=== PATIENT | male | born 1985 | race Caucasian/White ===

== ENCOUNTER 2017-07-10 10:28 | Emergency (ER) | payer SELFPAY ==
[2017-07-10 11:22] VITALS: BP 138/89
--- NOTE | 2017-07-10 12:34 | UC ---
Ear Complaint HPI - HPI Summary HPI Summary: Patient has had 10 days of cold symptoms, c/o of fever, although he never took his temp, body aches and sore throat that clears after waking up. - History of Current Complaint Chief Complaint: UCRespiratory Stated Complaint: THROAT,CONGESTION Time Seen by Provider: 07/10/17 12:17 Hx Obtained From: Patient Onset/Duration: Sudden Onset, Lasting Days Severity Initially: Moderate Severity Currently: Moderate - Allergies/Home Medications Allergies/Adverse Reactions: Allergies Allergy/AdvReac Type Severity Reaction Status Date / Time No Known Allergies Allergy Verified 07/10/17 11:16 Home Medications: Home Medications [id number] [Nyquil Severe Cold/Flu 5-6.25-10-325 mg/15Ml] 1 liq PO ONCE PRN 07/10/17 [History Confirmed 07/10/17] PMH/Surg Hx/FS Hx/Imm Hx Previously Healthy: Yes - Surgical History Surgical History: Yes Surgery Procedure, Year, and Place: right eye sx as a kid - Family History Known Family History: Negative: Hypertension, Diabetes, Respiratory Disease - Social History Alcohol Use: Rare Substance Use Type: None Smoking Status (MU): Current Some Day Smoker Type: Smokeless Tobacco Amount Used/How Often: daily - Immunization History Most Recent Influenza Vaccination: not this season Review of Systems Constitutional: Negative Skin: Negative Eyes: Negative ENT: Sore Throat, Ear Ache Respiratory: Cough Cardiovascular: Negative Gastrointestinal: Negative Genitourinary: Negative Motor: Negative Neurovascular: Negative Musculoskeletal: Myalgia Neurological: Headache Psychological: Negative Is Patient Immunocompromised?: No All Other Systems Reviewed And Are Negative: Yes Physical Exam Triage Information Reviewed: Yes Appearance: Well-Nourished, Ill-Appearing, Pain Distress Vital Signs: Initial Vital Signs Temp 98.6 F 07/10/17 11:17 Pulse 81 07/10/17 11:17 Resp 18 07/10/17 11:17 BP 138/89 07/10/17 11:17 Pulse Ox 100 07/10/17 11:17 Vital Signs Reviewed: Yes Eye Exam: Normal ENT: Positive: Pharynx normal, Other - bilateral cerumen impaction Dental Exam: Normal Neck exam: Normal Respiratory Exam: Normal Respiratory: Positive: Chest non-tender, Lungs clear, Normal breath sounds Cardiovascular Exam: Normal Cardiovascular: Positive: RRR, No Murmur, Pulses Normal Abdominal Exam: Normal Abdomen Description: Positive: Nontender, No Organomegaly, Soft Bowel Sounds: Positive: Present Musculoskeletal Exam: Normal Musculoskeletal: Positive: Strength Intact, ROM Intact, No Edema Neurological Exam: Normal Neurological: Positive: Alert, Muscle Tone Normal Psychological Exam: Normal Skin Exam: Normal Ear Complaint Course/Dx - Course Course Of Treatment: hx obtained, exam performed ,meds reviewed, treated for cough and infalmmation of ears - Differential Dx/Diagnosis Differential Diagnosis/HQI/PQRI: Otitis Externa, Otitis Media, Pharyngitis, URI Provider Diagnoses: URI. cough. bilateral cerumen impaction Discharge - Discharge Plan Condition: Stable Disposition: HOME Prescriptions: predniSONE TAB* [Deltasone TAB*] 40 mg PO DAILY #14 tab Patient Education Materials: Upper Respiratory Infection (ED) Referrals: No Primary Care Phys,NOPCP [Primary Care Provider] - Additional Instructions: 1. take the prednisone as prescribed. 2. Increase fluid intake and get plenty of rest. 3. Follow up with any increase in symptoms.
== END 2017-07-10 13:35 | disposition home or self-care (01) ==
LOC: UCCORT 10:28
DX: J06.9 Acute upper respiratory infection, unspecified (principal); R05 Cough; H61.23 Impacted cerumen, bilateral; Z72.0 Tobacco use
CPT/HCPCS: 99213; G0463

== ENCOUNTER 2017-07-19 11:02 | Emergency (ER) | payer SELFPAY ==
[2017-07-19 11:53] VITALS: BP 124/82
--- NOTE | 2017-07-19 12:23 | RAD ---
HISTORY: Right knee pain COMPARISONS: None VIEWS: 4, Frontal, lateral, axial, and oblique views right knee FINDINGS: BONE DENSITY: Normal. BONES: There is no displaced fracture. JOINTS: There is no arthropathy. There is no suprapatellar joint effusion or lipohemarthrosis. ALIGNMENT: There is no dislocation. SOFT TISSUES: Unremarkable. OTHER FINDINGS: None. IMPRESSION: NO ACUTE OSSEOUS INJURY. IF SYMPTOMS PERSIST, RECOMMEND REPEAT IMAGING.
--- NOTE | 2017-07-19 12:27 | UC ---
Knee Pain HPI - HPI Summary HPI Summary: right knee pain x 1 day has been having right knee discomfort for about 8 months, no known injury , feels the knee comes out of joint and then goes back in - History of Current Complaint Chief Complaint: UCLowerExtremity Stated Complaint: RT KNEE INJURY Time Seen by Provider: 07/19/17 11:54 Hx Obtained From: Patient Onset/Duration: Gradual Onset, Lasting Days - 1, Still Present Severity Initially: Moderate Severity Currently: Moderate Aggravating Factor(s): Movement, Weight Bearing, Prolonged Standing, Stairs Alleviating Factor(s): Rest Associated Signs And Symptoms: Positive: Swelling. Negative: Redness, Bruising , Fever, Weakness, Numbness, Tingling - Allergies/Home Medications Allergies/Adverse Reactions: Allergies Allergy/AdvReac Type Severity Reaction Status Date / Time No Known Allergies Allergy Verified 07/19/17 11:46 PMH/Surg Hx/FS Hx/Imm Hx Previously Healthy: Yes - Surgical History Surgical History: Yes Surgery Procedure, Year, and Place: right eye sx as a kid - Family History Known Family History: Negative: Hypertension, Diabetes, Respiratory Disease - Social History Alcohol Use: Rare Substance Use Type: None Smoking Status (MU): Current Some Day Smoker Type: Smokeless Tobacco Amount Used/How Often: daily - Immunization History Most Recent Influenza Vaccination: not this season Review of Systems Constitutional: Negative Skin: Negative Eyes: Negative ENT: Negative Respiratory: Negative Cardiovascular: Negative Is Patient Immunocompromised?: No All Other Systems Reviewed And Are Negative: Yes Physical Exam Triage Information Reviewed: Yes Appearance: Well-Appearing, No Pain Distress, Well-Nourished Vital Signs: Initial Vital Signs Temp 99.5 F 07/19/17 11:47 Pulse 100 07/19/17 11:47 Resp 18 07/19/17 11:47 BP 124/82 07/19/17 11:47 Vital Signs Reviewed: Yes Eyes: Positive: Conjunctiva Clear ENT: Positive: Normal ENT inspection, Hearing grossly normal, Pharynx normal Neck exam: Normal Neck: Positive: Supple, Nontender, No Lymphadenopathy Respiratory: Positive: Chest non-tender, Lungs clear, Normal breath sounds, No respiratory distress Musculoskeletal: Positive: Other: - right knee: no swelling, no effusion , no erythema, good ROM on flexion and extension stable ligaments Diagnostics - Laboratory Diagnostic Studies Completed/Ordered: right knee: normal knee xray , no fracture , no dyslocation Knee Pain Course/Dx - Differential Dx/Diagnosis Provider Diagnoses: right knee pain Discharge - Discharge Plan Condition: Stable Disposition: HOME Patient Education Materials: Knee Pain (ED) Referrals: No Primary Care Phys,NOPCP [Primary Care Provider] - 2 Weeks
== END 2017-07-19 12:42 | disposition home or self-care (01) ==
LOC: UCCORT 11:02
DX: M25.561 Pain in right knee (principal); Z72.0 Tobacco use
CPT/HCPCS: 99211; G0463

== ENCOUNTER 2017-09-24 18:29 | Emergency (ER) | payer BC ==
[2017-09-24 19:31] VITALS: BP 142/89
--- NOTE | 2017-09-24 19:55 | UC ---
Throat Pain/Nasal Simón HPI - HPI Summary HPI Summary: C/O sore throat, chest is heavy but not SOB. Body aches but no headache, congestion or cough. C/O spots on the left shoulder over the last 3 days. Mild itching. - History of Current Complaint Chief Complaint: UCGeneralIllness Stated Complaint: SORE THROAT/ACHY/SPOTS ON SHLD Time Seen by Provider: 09/24/17 19:48 Onset/Duration: Sudden Onset, Lasting Days - 1, Still Present Severity: Moderate Pain Intensity: 6 Cough: None Associated Signs & Symptoms: Positive: Dysphagia. Negative: Wheezing, Hoarseness, Sinus Discomfort, Nasal Discharge - Allergies/Home Medications Allergies/Adverse Reactions: Allergies Allergy/AdvReac Type Severity Reaction Status Date / Time No Known Allergies Allergy Verified 09/24/17 19:29 Home Medications: Home Medications NK [No Home Medications Reported] 09/24/17 [History Confirmed 09/24/17] PMH/Surg Hx/FS Hx/Imm Hx Previously Healthy: Yes - Surgical History Surgical History: Yes Surgery Procedure, Year, and Place: right eye sx as a kid - Family History Known Family History: Negative: Cardiac Disease, Hypertension, Diabetes, Respiratory Disease - Social History Occupation: Employed Full-time Lives: Alone Alcohol Use: Rare Substance Use Type: None Smoking Status (MU): Current Some Day Smoker Type: Smokeless Tobacco Amount Used/How Often: daily - Immunization History Most Recent Influenza Vaccination: not this season Review of Systems ENT: Sore Throat Musculoskeletal: Myalgia Is Patient Immunocompromised?: No All Other Systems Reviewed And Are Negative: Yes Physical Exam Triage Information Reviewed: Yes Appearance: Well-Appearing, No Pain Distress, Well-Nourished Vital Signs: Initial Vital Signs Temp 99.7 F 09/24/17 19:25 Pulse 99 09/24/17 19:25 Resp 14 09/24/17 19:25 BP 142/89 09/24/17 19:25 Pulse Ox 99 09/24/17 19:25 Vital Signs Reviewed: Yes Eyes: Positive: Conjunctiva Clear ENT: Positive: Pharynx normal, TMs normal Neck exam: Normal Respiratory: Positive: Lungs clear Cardiovascular Exam: Normal Musculoskeletal Exam: Normal Neurological Exam: Normal Psychological Exam: Normal Skin: Positive: rashes - Grouped erythematous papules with ulcers on the left anterior shoulder. Throat Pain/Nasal Course/Dx - Differential Dx/Diagnosis Differential Diagnosis/HQI/PQRI: Pharyngitis, Tonsillitis, URI Provider Diagnoses: Acute pharyngitis. Shingles Discharge - Sign-Out/Discharge Documenting (check all that apply): Discharge - Discharge Plan Condition: Stable Disposition: HOME Patient Education Materials: Pharyngitis (ED), Shingles (ED) Referrals: No Primary Care Phys,NOPCP [Primary Care Provider] - - Billing Disposition and Condition Condition: STABLE Disposition: HOME
== END 2017-09-24 20:15 | disposition home or self-care (01) ==
LOC: UCCORT 18:29
DX: J02.9 Acute pharyngitis, unspecified (principal); B02.9 Zoster without complications; F17.200 Nicotine dependence, unspecified, uncomplicated
CPT/HCPCS: 87651; 99211; G0463